=== PATIENT | male | born 1940 | race Caucasian/White ===

== ENCOUNTER → 2016-09-06 | Outpatient (CLI) | payer OTHER ==
--- NOTE | 2016-09-06 19:48 | MR ---
MRI of the Right Hip, Without Contrast September 06, 2016 History: Right hip pain, evaluate for a labral tear. Technique: Large [id number] axial and coronal MR sequences of the pelvis are followed by small fi eld-of-view sequences of the right hip in three planes. 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 On the right side, there is r elatively advanced osteoarthritis, with grade 4 chondral loss involving the weightbearing aspect of t he right femoral head and acetabulum. There is associated subchondral cystic change along the latera l rim of the acetabulum anteriorly, along with degenerative maceration and fraying, with partial flap tear involving the anterosuperior acetabular labrum diffusely. This tear extends inferiorly to the 3 o'clock position where maceration and irregularity are noted. The posterior labrum is intact infer iorly. There is maceration and intrasubstance signal within the posterosuperior labrum. The ligamen adriane teres is intact. Gluteal tendons are intact over the greater trochanters bilaterally. Hamstring tendon origins are in tact. The sacroiliac joints appear unremarkable. Large [id number] imaging of the left hip demonstrates less severe articular cartilage loss superio rly, with a small sublabral cyst present at the 12 o'clock position. 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 Less severe degenerative arthropathy, left hip.
== END ==
LOC: FIMAGING 16:09
PROVIDERS: ATTEND Orthopaedic Surgery
DX: M24.151 Other articular cartilage disorders, right hip (principal); M24.152 Other articular cartilage disorders, left hip